=== PATIENT | male | born 1955 | race Caucasian/White ===

== ENCOUNTER 2025-06-27 09:50 | Outpatient (CLI) | payer BC ==
[2025-06-27 10:38] LABS: #Basophils 0.06 10x3/uL (0.0-0.2); #Eosinophils 0.28 10x3/uL (0.0-0.5); #Monocytes 0.74 10x3/uL (0.0-1.1); #Neutrophils 3.32 10x3/uL (1.5-8.4); %Basophils 1.0 % (0.0-2.0); %Eosinophils 4.9 % (0.0-6.0); %Lymphocytes 22.7 % (18.0-47.0); %Monocytes 12.9 % (0.0-10.0); %Neutrophils 58.2 % (40.0-75.0); Hematocrit 43.4 % (38.8-50.0); Hemoglobin 14.9 g/dL (13.5-17.5); Mean Corpuscular Hemoglobin 30.7 pg (27.0-33.0); Mean Corpuscular Volume 89.3 fL (81.2-95.1); Platelet Count 209 10x3/uL (150-450); Red Blood Cell (RBC) Count 4.86 10x6/uL (4.32-5.72); White Blood Cell (WBC) Count 5.72 10x3/uL (3.5-10.5)
[2025-06-27 10:53] LABS: Anion Gap 13 mmol/L (10-20); BUN (Urea Nitrogen) 16 mg/dL (8.4-25.7); Calc. Creatinine Clearance 0 mL/min (70-130); Calcium 8.6 mg/dL (7.8-10.44); Carbon Dioxide 24 mmol/L (23-31); Chloride 107 mmol/L (98-107); Glucose 91 mg/dL (80-115); Potassium 4.4 mmol/L (3.5-5.1); Sodium 140 mmol/L (136-145)
== END 2025-06-27 09:51 | disposition home or self-care (01) ==
LOC: CSHLAB 09:50
PROVIDERS: ATTEND Specialist
DX: Z01.818 Encounter for other preprocedural examination (principal)
CPT/HCPCS: 71046; 80048; 85025; 93005; 93010

== ENCOUNTER → 2025-06-28 | Day surgery (SDC) | payer BC ==
[2025-06-27 10:13] VITALS: BMI 36.6
[~2025-06-28] MED LIST: Acetaminophen 500 MG TAB ONE; Bupivacaine/Epinephrine 0.25% 30 ML VIAL ONE; CEFAZOLIN 2 GM VIAL ONE; HYDROcodone/Acetaminophen 10/325 mg Tablet ONE; Ketorolac Tromethamine 30 MG (1 mL) VIAL ONE; Lidocaine 1% PF 5 ML VIAL ONE; Ondansetron PF 4 MG/2 ML Vial ONE; PROPOFOL 40 ML ONE; Sevoflurane 250 ML INH ANEST BOTTLE ONE
== END ==
LOC: CSHSDC 12:04
PROVIDERS: ATTEND Specialist
PROC: 0WUF0JZ Supplement Abdominal Wall with Synthetic Substitute, Open Approach (ICD-10-PCS; principal; 2025-06-28)
DX: K42.0 Umbilical hernia with obstruction, without gangrene (principal); Z90.49 Acquired absence of other specified parts of digestive tract; Z88.5 Allergy status to narcotic agent
CPT/HCPCS: A6258; C1889; J1100; J1885; J2405; J2704; J3010